=== PATIENT | female | born 1980 | race American Indian/Alaskan Native ===

== ENCOUNTER 2018-06-23 13:36 | Emergency (ER) | payer SELFPAY ==
[2018-06-23 14:05] VITALS: BP 124/82
--- NOTE | 2018-06-23 18:04 | Emergency Department Report ---
- General Chief complaint: Skin Rash Stated complaint: RASH Time Seen by Provider: 06/23/18 17:00 Source: patient Mode of arrival: Ambulatory Limitations: No Limitations - History of Present Illness Initial comments: 37 year-old female presents to ER with complaints of an itchy rash x 1 week. Patient states she is unsure whether symptoms are due to new house that she moved into a week ago, or the uniform that she was given for her new job, which she also started one week ago. Patient denies fever. Also denies new lotions, soap, detergent, perfume. She denies fever MD complaint: rash -: week(s) (1) Location: chest, RUE Severity: mild Consistency: intermittent Improves with: none Worsens with: none Context: other (unknown) Associated symptoms: itching - Related Data Previous Rx's Medication Instructions Recorded Last Taken Type Triamcinolone 0.1% [Kenalog 0.1% 1 applic TP TID PRN #1 tube 06/23/18 Unknown Rx CREAM] Abscess Boil HPI - HPI Chief Complaint: Skin Rash Stated Complaint: RASH Time Seen by Provider: 06/23/18 17:00 Home Medications: Previous Rx's Medication Instructions Recorded Last Taken Type Triamcinolone 0.1% [Kenalog 0.1% 1 applic TP TID PRN #1 tube 06/23/18 Unknown Rx CREAM] ED Review of Systems ROS: Stated complaint: RASH Other details as noted in HPI Comment: All other systems reviewed and negative Constitutional: denies: fever Skin: rash ED Past Medical Hx - Past Medical History Hx Hypertension: Yes - Surgical History Past Surgical History?: No - Social History Smoking Status: Never Smoker - Medications Home Medications: Home Medications Medication Instructions Recorded Confirmed Last Taken Type Triamcinolone 0.1% [Kenalog 0.1% 1 applic TP TID PRN #1 tube 06/23/18 Unknown Rx CREAM] ED Physical Exam - General Limitations: No Limitations General appearance: alert, in no apparent distress - Head Head exam: Present: atraumatic, normocephalic - Eye Eye exam: Present: normal appearance - ENT ENT exam: Present: mucous membranes moist - Neck Neck exam: Present: normal inspection - Respiratory Respiratory exam: Present: normal lung sounds bilaterally. Absent: respiratory distress - Cardiovascular Cardiovascular Exam: Present: regular rate, normal rhythm - Extremities Exam Extremities exam: Present: full ROM, normal capillary refill. Absent: pedal edema, joint swelling - Neurological Exam Neurological exam: Present: alert, oriented X3 - Psychiatric Psychiatric exam: Present: normal affect, normal mood - Skin Skin exam: Present: warm, dry, rash (papular lesion noted to right wrist; dried lesions noted on chest wall and right upper arm; all approx 1 cm in size) ED Course Vital Signs 06/23/18 14:00 Temperature 99.1 F Pulse Rate 100 H Blood Pressure 124/82 O2 Sat by Pulse 98 Oximetry ED Medical Decision Making - Medical Decision Making 37 yo F w/ rash x 1 week. Pt instructed to wash uniform throughly, as that may be cause of dermatitis. Will give presecription for topical steroid cream. - Differential Diagnosis dermatitis Critical care attestation.: If time is entered above; I have spent that time in minutes in the direct care of this critically ill patient, excluding procedure time. ED Disposition Clinical Impression: Dermatitis Disposition: - TO HOME OR SELFCARE Is pt being admited?: No Condition: Stable Instructions: Contact Dermatitis (ED) Prescriptions: Triamcinolone 0.1% [Kenalog 0.1% CREAM] 1 applic TP TID PRN #1 tube PRN Reason: Rash Referrals: PRIMARY CARE, [Primary Care Provider] - 3-5 Days [facility] [Provider Group] - 3-5 Days Time of Disposition: 18:06
== END 2018-06-23 18:20 | disposition home or self-care (01) ==
LOC: ED 13:36
DX: L30.9 Dermatitis, unspecified (principal); I10 Essential (primary) hypertension
CPT/HCPCS: 99282

== ENCOUNTER 2021-02-17 19:35 | Emergency (ER) | payer OTHER ==
[2021-02-17 22:27] VITALS: BP 138/99
== END 2021-02-18 02:20 | disposition home or self-care (01) ==
LOC: ED 19:35
DX: O73.1 Retained portions of placenta and membranes, without hemorrhage (principal); Z79.899 Other long term (current) drug therapy
CPT/HCPCS: 36415; 76801; 76817; 80048; 81001; 84702; 84703; 85025; 86900; 86901; 96372; 99284; J1885